=== PATIENT | male | born 1985 | race Two or more races ===

== ENCOUNTER 2021-01-31 18:19 | Emergency (ER) | payer SELFPAY ==
[~2021-01-31 18:19] MED LIST: CARAFATE1 GM PO; NEXIUM10 MG PO; NORCO 5-325 TA1 EACH PO
[2021-01-31] MEDS ORDERED: BACTROBAN OINT22 GM EXT (19:29)
== END 2021-01-31 19:53 | disposition home or self-care (01) ==
LOC: ER1 18:19
DX: S61.215A Laceration without foreign body of left ring finger without damage to nail, initial encounter (principal); Z90.49 Acquired absence of other specified parts of digestive tract; W26.0XXA Contact with knife, initial encounter
CPT/HCPCS: 12001; 90471; 90715; 99283